=== PATIENT | male | born 1970 | race Caucasian/White ===

== ENCOUNTER 2025-03-14 09:53 | Outpatient (OUT) | payer OTHER, SELFPAY ==
--- OUTSIDE RECORDS SUMMARY | 2009-03-17 08:45 | XMS_ITS | Continuity of Care Document ---
Author Organization [facility] Address [address] [place] [address] Phone Care Team Providers Care Steam Frame Operator Name Role Phone Alberto Villarreal Unavailable Unavailable Procedures Procedure Date OFFICE/OUTPATIENT VISIT, [facility] OFFICE/OUTPATIENT VISIT, [facility] HIV-1 Advance Directives Directive Yes / No Effective Date File Name No Information Encounters Encounter Description Practice Location Reason(s) For Visit Diagnoses Date Provider Providers Copied on Encounter OFFICE/OUTPATI ENT VISIT, [facility], [address], [place], [id number], [place] tel:[phone] [facility] No Information Cherelle Dominguez. [address], [place], [id number], [place]. tel:[phone] OFFICE/OUTPATI ENT VISIT, [facility], [address], [place], [id number], [place] tel:[phone] [facility] No Information Cherelle Dominguez. [address], [place], [id number], [place]. tel:[phone] Family History Family Member Type Diagnosis Age At Onset No Information Payers Payer name Insurance type Covered alliance party ID Authorjazzmine tran(s) Lisa SWEET [id number] Social History Type Description Quantity Date Captured Comments Sex Male Smoking Status No Information Chief Complaint And Reason For Visit No Information Reason For Referral Reason For Referral No Information History Of Present Illness Encounter Date Complaint History Of Prese nt Illness No Information Functional Status Date Functional Assessmen t No Information Instructions Date Instruction Additional Infor mation No Information Assessments Type Assessment Date No Information Patient Care Teams Name Effective Dates (start - stop) Status Members No Information
--- OUTSIDE RECORDS SUMMARY | 2025-03-07 09:30 | XMS_ITS | Encounter Summary ---
Author Organization [facility] Address [address] [place], [place] [address] Care Team Providers Care Retail Mortgage Banker Name Role Phone Fadi Castaneda Arash DO Primary Care Provider [phone] Elroy Padilla MD Unavailable [phone] Leonel Fadi Antoine DO Unavailable [phone] Source Comments In the event this information is protected by the Federal Confidentiality of Alcohol and Drug AbusePatient Records regulations: The Federal rules restrict any use of the information to criminally investigate or prosecute any alcohol or drug abuse patient.[facility] Encounter Details Date Type Department Care Team (Late st Contact Info) Description 03/07/2025 9:30 AM EDT Nurse Visit Hematology/Oncology [address] [place] [address] Carlita Landon Nurse Kishan [address] [place] [address] Encounter for monitoring Coumadin therapy (Primary Dx) Social History Tobacco Use Types Packs/Day Years Used Date Smoking Tobacco: Former Cigarettes 1 - 2008 Smokeless Tobacco: Never Alcohol Use Standard Drinks/Week Comments Yes 0 (1 standard drink = 0.6 oz pur e alcohol) social AUDIT-C Answer Date Recorded Q1: How often do you have a drink containing alc ohol? Monthly or less 05/23/2020 Q2: How many drinks containi ng alcohol do you have on a typical day when you are drinking? 1 or 2 05/23/2020 Frequency of Binge Drinking Not on file 09/2019 PHQ-2 Answer Date Recorded PHQ-2 score 0 08/27/2024 Area Deprivation Index Answer Date Michael rded National Score (1-100), lower number is lower ri sk 79 01/05/2023 State Score (1-10), lower number is lower risk 7 01/05/2023 Data from: https://www.neighborhoodatlas.medicine.[facility]/. Last address used for calculation [address] 01/05/2023 Sex and Gender Information Value Date Recorded Sex Assigned at Not on file Legal Sex Male 9:30 AM EDT Gender Identity Not on file Sexual Orientation Not on file documented as of this encounter Progress Notes * Aida Fulton MA - 03/07/2025 9:30 AM EDT Solitario Raza presents in office today for: Lab Draw only . Ordering Provider: Cecily Ramirez CNP Test (s) ordered: Pro Time Method for obtaining blood: Finger Stick Needle removed intact. Dressing secured. Patient denies discomfort, dizziness, light-headedness or weakness and left the department without assist. Aida Fulton MA documented in this encounter Plan of Treatment Not on file documented as of this encounter Goals Goal Patient Goal Type Associated Problems Recent Progress Patient-Stated? Author Blood Pressure < 130/80 Blood Pressure 129/87(2024 11:25 AM EST) No Roselia Morales documented as of this encounter Visit Diagnoses Diagnosis Encounter for monitoring Coumadin therapy- Primary Encounter for therapeutic drug monitoring documented in this encounter Care Teams Retail Mortgage Banker Relationship Specialty Start Date End Date Fadi Castaneda DO PCP - General Internal Medicine 03/24/15 Elroy Padilla MD Primary Staff Physician Cardiology 11/07/18 Fadi Castaneda DO [address] [place] [address] Internal Medicine 10/03/20 documented as of this encounter
--- NOTE | 2025-03-14 | XR_ITS ---
[facility] [place] [id number] Patient Name: MATEO GALLAGHER MRN: [id number] date: 1970 Sex: M Assigned Patient Location: [facility] Current Patient Location: [facility] Accession/Order Number: [id number] Exam Date: 03/14/2025 10:27 Report Date: 03/14/2025 10:29 At the request of: DEIDRA CLEARY Procedure: XR shoulder MARIELENA min 2V Bilateral shoulder series 3 views each Reason for exam: Chronic right shoulder pain for 10 years. Left shoulder pain for 4 months. COMPARISON: None. FINDINGS: Right shoulder demonstrates moderate degenerative changes of the glenohumeral joint without acute bony process. AC joint appears grossly unremarkable. Left shoulder demonstrates mild degenerative changes of the glenohumeral joint without acute bony process. AC joint appears grossly unremarkable. 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 Impression dictated by: Deshaun Perdomo Jr., D.O. 03/14/2025 10:29 AM Dictation Location: [place] [address] Electronically authenticated by: [id number] Y Date: 03/14/2025 10:29
--- OUTSIDE RECORDS SUMMARY | 2025-03-14 09:55 | XMS_ITS | Encounter Summary ---
Author Organization [facility] Address [address] [place] [address] Care Team Providers Care Gas Meter Installer Name Role Phone Leonel Fadi Antoine DO Primary Care Provider [phone] Elroy Padilla MD Unavailable [phone] Fadi Castaneda DO Unavailable [phone] Brody Huffman MD Unavailable Unavailable Source Comments In the event this information is protected by the Federal Confidentiality of Alcohol and Drug AbusePatient Records regulations: The Federal rules restrict any use of the information to criminally investigate or prosecute any alcohol or drug abuse patient.[facility] Encounter Details Date Type Department Care Team (Late st Contact Info) Description 02/24/2021 Get Medical Advice Cardiology [address], [place] [id number] Brody Huffman MD RE: Upcoming Appointment Question Social History Tobacco Use Types Packs/Day Years Used Date Smoking Tobacco: Former Cigarettes 1 17 2008 Smokeless Tobacco: Never Alcohol Use Standard [...] of Binge Drinking Not on file 09/2019 Area Deprivation Index Answer Date Michael rded National Score (1-100), lower number is lower ri sk Not on file 07/27/2020 State Score (1-10), lower number is lower risk N ot on file 07/27/2020 Data from: https://www.neighborhoodatlas.medicine.[facility]/. Last address used for calculation Not on file 07/27/2020 Sex and Gender Information Value Date Recorded Sex Assigned at Not on file Legal Sex Male 9:30 AM EDT Gender Identity Not on file Sexual Orientation Not on file COVID-19 Exposure Response Date Recorded In the last month, have you been in contact with someone who was confirmed or suspected to have Coronavirus / COVID-19? No / Unsure 02/24/2021 2:02 PM EDT documented as of this encounter Plan of Treatment Not on file documented as of this encounter Visit Diagnoses Not on filedocumented in this encounter Care Teams Gas Meter Installer Relationship Specialty Start Date End Date Fadi Castaneda DO PCP - General Internal Medicine 03/24/15 Elroy Padilla MD Primary Staff Physician Cardiology 11/07/18 Fadi Castaneda DO [address] [place] [address] Internal Medicine 10/03/20 Brody Huffman MD [address] [place] [address] Primary Staff Physician Cardiology 02/26/2106/10 documented as of this encounter
--- OUTSIDE RECORDS SUMMARY | 2025-03-14 09:55 | XMS_ITS | Encounter Summary ---
Author Organization [facility] Address [address] [place] [address] Care Team Providers Care Site Planner Name Role Phone Fadi Castaneda DO Primary Care Provider [phone] Elroy Padilla MD Unavailable [phone] Fadi Castaneda DO Unavailable [phone] Brody Huffman MD Unavailable Unavailable Source Comments In the event this information is protected by the Federal Confidentiality of Alcohol and Drug AbusePatient Records regulations: The Federal rules restrict any use of the information to criminally investigate or prosecute any alcohol or drug abuse patient.[facility] Encounter Details Date Type Department Care Team (Late st Contact Info) Description 03/24/2024 Patient Msg Preventive Cardiology [address] [place] [address] Carlton Lanza MD [address] [place] [address] Appointment Request Social History Tobacco Use Types Packs/Day Years Used Date Smoking Tobacco: Former Cigarettes 1 17 1 - 2008 Smokeless Tobacco: Never Alcohol [...] PHQ-2 Answer Date Recorded PHQ-2 score 0 03/01/2024 Area Deprivation Index Answer Date Michael rded National Score (1-100), lower number is lower ri sk 79 01/05/2023 State Score (1-10), lower number is lower risk 7 01/05/2023 Data from: https://www.neighborhoodatlas.medicine.[facility].edu/. Last address used for calculation [address] 01/05/2023 Sex and Gender Information Value Date Recorded Sex Assigned at Not on file Legal Sex Male 9:30 AM EDT Gender Identity Not on file Sexual Orientation Not on file documented as of this encounter Plan of Treatment Not on file documented as of this encounter Goals Goal Patient Goal Type Associated Problems Recent Progress Patient-Stated? Author Blood Pressure < 130/80 Blood Pressure 129/87(2024 11:25 AM EST) No Roselia Morales documented as of this encounter Visit Diagnoses Not on filedocumented in this encounter Care Teams Site Planner Relationship Specialty Start Date End Date Fadi Castaneda DO PCP - General Internal Medicine 03/24/15 Elroy Padilla MD Primary Staff Physician Cardiology 11/07/18 Fadi Castaneda DO [address] [facility] [place] [address] Internal Medicine 10/03/20 Brody Huffman MD [address] [place] [address] Primary Staff Physician Cardiology 02/26/2106/10 documented as of this encounter
--- OUTSIDE RECORDS SUMMARY | 2025-03-14 09:55 | XMS_ITS | Encounter Summary ---
Author Organization [facility] Address [address] [place] [address] Care Team Providers Care Public Service Representative Name Role Phone Fadi Castaneda DO Primary Care Provider [phone] Elroy Padilla MD Unavailable [phone] Fadi Castaneda DO Unavailable [phone] Brody Huffman MD Unavailable Unavailable Source Comments In the event this information is protected by the Federal Confidentiality of Alcohol and Drug AbusePatient Records regulations: The Federal rules restrict any use of the information to criminally investigate or prosecute any alcohol or drug abuse patient.[facility] Encounter Details Date Type Department Care Team (Late st Contact Info) Description 04/11/2024 Get Medical Advice Cardiology [address] [place] [address] Olga Andrade, LOGGING EQUIPMENT MECHANIC.[facility] [address] [place] [address] Brilinta Social History Tobacco Use Types Packs/Day Years [...] is lower risk 7 01/05/2023 Data from: https://www.neighborhoodatlas.medicine.[facility].edu/. Last address used for calculation [address] [...] on filedocumented in this encounter Care Teams Public Service Representative Relationship Specialty Start Date End Date Fadi Castaneda DO PCP - General Internal Medicine 03/24/15 Elroy Padilla MD Primary Staff Physician Cardiology 11/07/18 Fadi Castaneda DO [address] [place] [address] Internal Medicine 10/03/20 Brody Huffman MD [address] [place] [address] Primary Staff Physician Cardiology 02/26/2106/10 documented as of this encounter
--- OUTSIDE RECORDS SUMMARY | 2025-03-14 09:55 | XMS_ITS | Encounter Summary ---
Author Organization [facility] Address [address] [place] [address] Care Team Providers Care Speech Communication Instructor Name Role Phone Leonel Fadi Antoine DO Primary Care Provider [phone] Elroy Padilla MD Unavailable Leonel Fadi Antoine DO Unavailable [phone] Source Comments In the event this information is protected by the Federal Confidentiality of Alcohol and Drug AbusePatient Records regulations: The Federal rules restrict any use of the information to criminally investigate or prosecute any alcohol or drug abuse patient.[facility] Reason for Visit * Reason Comments Refill Request [facility] Managed Refill Encounter Details Date Type Department Care Team (Late st Contact Info) Description 03/11/2025 Refill Preventive Cardiology [address] [place] [address] Yesenia Kim APRN.[facility] [address] [place] [address] Refill Request ([facility] Managed Refill ) Social History Tobacco Use Types Packs/Day Years [...] is lower risk 7 01/05/2023 Data from: https://www.neighborhoodatlas.medicine.[facility]/. Last address used for calculation [address] 01/05/2023 Sex and Gender Information Value Date Recorded Sex Assigned at Not on file Legal Sex Male 9:30 AM EDT Gender Identity Not on file Sexual Orientation Not on file documented as of this encounter Miscellaneous Notes * Telephone Encounter - Martin Meza [facility] - 03/12/2025 11:47 AM EDT Pharmacist Managed Refill Encounter Name: Solitario Raza Refill authorization request(s) received and reviewed under effective consult agreement. The patient consented to the pharmacy service and agreed to allow medications to be collaboratively managed bythe pharmacist. The patient may decline or cancel the agreement at any time. Upon review, it was confirmed that an active patient-provider relationship exists, and the prescriber is a participating physician under the consult agreement. Last office visit in this department: 05/30/2023 Carlton Lanza MD Last distance health visit in this department: 08/28/2024 Yesenia Kim APRN.[employer] Next appointment in this department: Visit date not found Requested Prescriptions Signed Prescriptions Disp Refills metoprolol succinate ER (TOPROL XL) 25 mg 24 hr tablet 45 tablet 1 Sig: Take 0.5 tablets by mouth once daily. Authorizing Provider: YESENIA KIM Ordering User: MARTIN MEZA spironolactone (ALDACTONE) 25 mg tablet 45 tablet 1 Sig: Take 0.5 tablets by mouth once daily. Authorizing Provider: YESENIA KIM Ordering User: MARTIN MEZA The medication(s) fall under category 1: No barriers to continued therapy exist. # of refills approved in this encounter: 2 Martin Meza RPh documented in this encounter Plan of Treatment Not on file documented as of this encounter Goals Goal Patient Goal Type Associated Problems Recent Progress Patient-Stated? Author Blood Pressure < 130/80 Blood Pressure 129/87(2024 11:25 AM EST) No Roselia Morales documented as of this encounter Visit Diagnoses Not on filedocumented in this encounter Care Teams Speech Communication Instructor Relationship Specialty Start Date End Date Fadi Castaneda DO PCP - General Internal Medicine 03/24/15 Elroy Padilla MD Primary Staff Physician Cardiology 11/07/18 Fadi Castaneda DO [address] [place] [address] Internal Medicine 10/03/20 documented as of this encounter
--- OUTSIDE RECORDS SUMMARY | 2025-03-14 09:55 | XMS_ITS | Encounter Summary ---
Author Organization [facility] Address [address] [place] [address] Care Team Providers Care Manager Country Name Role Phone Fadi Castaneda DO Primary Care Provider [phone] Elroy Padilla MD Unavailable [phone] Fadi Castaneda DO Unavailable [phone] Brody Huffman MD Unavailable Unavailable Source Comments In the event this information is protected by the Federal Confidentiality of Alcohol and Drug AbusePatient Records regulations: The Federal rules restrict any use of the information to criminally investigate or prosecute any alcohol or drug abuse patient.[facility] Encounter Details Date Type Department Care Team (Late st Contact Info) Description 10/13/2023 Get Medical Advice Preventive Cardiology [address] [place] [address] Carlton Lanza MD [address] [place] [address] Next appointment Social History Tobacco Use Types Packs/Day Years [...] PHQ-2 Answer Date Recorded PHQ-2 score 0 08/31/2023 Area Deprivation Index Answer Date Michael rded National Score (1-100), lower number is lower ri sk 79 01/05/2023 State Score (1-10), lower number is lower risk 7 01/05/2023 Data from: https://www.neighborhoodatlas.medicine.[facility].edu/. Last address used for calculation [address] [...] on filedocumented in this encounter Care Teams Manager Country Relationship Specialty Start Date End Date Fadi Castaneda DO PCP - General Internal Medicine 03/24/15 Elroy Padilla MD Primary Staff Physician Cardiology 11/07/18 Fadi Castaneda DO [address] [place] [address] Internal Medicine 10/03/20 Brody Huffman MD [address] [place] [address] Primary Staff Physician Cardiology 02/26/2106/10 documented as of this encounter
--- OUTSIDE RECORDS SUMMARY | 2025-03-14 09:55 | XMS_ITS | Encounter Summary ---
Author Organization [facility] Address [address] [place] [address] Care Team Providers Care Completions Manager Name Role Phone Fadi Castaneda DO Primary Care Provider [phone] Elroy Padilla MD Unavailable [phone] Elroy Padilla MD Unavailable [phone] Fadi Castaneda DO Unavailable [phone] Brody Huffman MD Unavailable Unavailable Source Comments In the event this information is protected by the Federal Confidentiality of Alcohol and Drug AbusePatient Records regulations: The Federal rules restrict any use of the information to criminally investigate or prosecute any alcohol or drug abuse patient.[facility] Encounter Details Date Type Department Care Team (Late st Contact Info) Description 06/23/2018 Get Medical Advice Cardiology [address] [place], [place] [phone] Elroy Padilla MD [address] [facility] [address] [place] [address] RE: Non-Urgent Medical Question Social History Tobacco Use Types Packs/Day Years Used Date Smoking Tobacco: Former Cigarettes 1 17 1 992 - 2009 Smokeless Tobacco: Never Alcohol Use Standard Drinks/Week Comments Yes 0 (1 standard drink = 0.6 oz pur e alcohol) social Sex and Gender Information Value Date Recorded Sex Assigned at Not on file Legal Sex Male 9:30 AM EDT Gender Identity Not on file Sexual Orientation Not on file documented as of this encounter Plan of Treatment Not on file documented as of this encounter Visit Diagnoses Not on filedocumented in this encounter Care Teams Completions Manager Relationship Specialty Start Date End Date Fadi Castaneda DO PCP - General Internal Medicine 03/24/15 Elroy Padilla MD Primary Staff Physician Cardiology 11/07/18 Elroy Padilla MD Primary Staff Physician Cardiology 11/07/18 Fadi Castaneda DO [address] [place] [address] Internal Medicine 10/03/20 Brody Huffman MD [address] [place] [address] Primary Staff Physician Cardiology 02/26/2106/10 documented as of this encounter
--- OUTSIDE RECORDS SUMMARY | 2025-03-14 09:55 | XMS_ITS | Encounter Summary ---
Author Organization [facility] Address [address] [place] [address] Phone Care Team Providers Care Traveling Auditor Name Role Phone Fadi Castaneda DO Primary Care Provider [phone] Encounter Details Date Type Department Care Team (Late st Contact Info) Description 12/29/2022 Orders Only [facility] [address] [place] [address] Conversion, Onbase Social History Tobacco Use Types Packs/Day Years Used Date Smoking Tobacco: Never Assessed Sex and Gender Information Value Date Recorded Sex Assigned at Not on file Legal Sex Male 7:44 AM EST Gender Identity Not on file Sexual Orientation Not on file documented as of this encounter Plan of Treatment Scheduled Orders Name Type Priority Associated Diagnoses Orde r Schedule OUTSIDE LAB SCAN Lab Ordered: 12/29/2022 documented as of this encounter Visit Diagnoses Not on filedocumented in this encounter Care Teams Traveling Auditor Relationship Specialty Start Date End Date Fadi Castaneda DO PCP - General 11/30/22 documented as of this encounter
--- OUTSIDE RECORDS SUMMARY | 2025-03-14 09:55 | XMS_ITS | Encounter Summary ---
Author Organization [facility] Address [address] [place] [address] Care Team Providers Care Sales Marketing Manager Name Role Phone Leonel Fadi Antoine DO Primary Care Provider [phone] Elroy Padilla MD Unavailable [phone] Fadi Castaneda DO Unavailable [phone] Brody Huffman MD Unavailable Unavailable Source Comments In the event this information is protected by the Federal Confidentiality of Alcohol and Drug AbusePatient Records regulations: The Federal rules restrict any use of the information to criminally investigate or prosecute any alcohol or drug abuse patient.[facility] Encounter Details Date Type Department Care Team (Late st Contact Info) Description 01/18/2024 Patient Msg Cardiology [address] [place], [place] [id number] Brody Huffman MD Appointment Request Social History Tobacco Use Types Packs/Day Years Used Date Smoking Tobacco: Former Cigarettes 2008 Smokeless Tobacco: Never Alcohol Use Standard [...] is lower risk 7 01/05/2023 Data from: https://www.neighborhoodatlas.medicine.[facility].edu/. Last address used for calculation [address] 01/05/2023 Sex and Gender Information Value [...] 130/80 Blood Pressure 129/87(2024 11:25 AM EST) Roselia Alberts documented as of this encounter Visit Diagnoses Not on filedocumented in this encounter Care Teams Sales Marketing Manager Relationship Specialty Start Date End Date Fadi Castaneda DO PCP - General Internal Medicine 03/24/15 Elroy Padilla MD Primary Staff Physician Cardiology 11/07/18 Fadi Castaneda DO [address] [place] [address] Internal Medicine 10/03/20 Brody Huffman MD [address] [place] [address] Primary Staff Physician Cardiology 02/26/2106/10 documented as of this encounter
--- OUTSIDE RECORDS SUMMARY | 2025-03-14 09:55 | XMS_ITS | Encounter Summary ---
Author Organization [facility] Address [address] [place] [address] Care Team Providers Care Dimpling Machine Operator Name Role Phone Leonel Fadi Antoine DO Primary Care Provider [phone] Elroy Padilla MD Unavailable [phone] Fadi Castaneda DO Unavailable Brody Huffman MD Unavailable Unavailable Source Comments In the event this information is protected by the Federal Confidentiality of Alcohol and Drug AbusePatient Records regulations: The Federal rules restrict any use of the information to criminally investigate or prosecute any alcohol or drug abuse patient.[facility] Encounter Details Date Type Department Care Team (Late st Contact Info) Description 03/24/2024 Patient Msg Cardiology [address], [place] [address] Brody Huffman MD Appointment Request Social History [...] is lower risk 7 01/05/2023 Data from: https://www.neighborhoodatlas.medicine.[facility].edu/. Last address used for calculation [...] on filedocumented in this encounter Care Teams Dimpling Machine Operator Relationship Specialty Start Date End Date Fadi Castaneda DO PCP - General Internal Medicine 03/24/15 Elroy Padilla MD Primary Staff Physician Cardiology 11/07/18 Fadi Castaneda DO [address] [place] [address] Internal Medicine 10/03/20 Brody Huffman MD [address] [place] [address] Primary Staff Physician Cardiology 02/26/2106/10 documented as of this encounter
--- OUTSIDE RECORDS SUMMARY | 2025-03-14 09:55 | XMS_ITS | Encounter Summary ---
Author Organization [facility] Address [address] [place] [address] Care Team Providers Care Machine Designer Name Role Phone LeonelFadi Arash DO Primary Care Provider [phone] Elroy Padilla MD Unavailable [phone] Leonel Fadi Antoine DO Unavailable [phone] Source Comments In the event this information is protected by the Federal Confidentiality of Alcohol and Drug AbusePatient Records regulations: The Federal rules restrict any use of the information to criminally investigate or prosecute any alcohol or drug abuse patient.[facility] Encounter Details Date Type Department Care Team (Late st Contact Info) Description 08/20/2024 Get Medical Advice Cardiology [address] [place], [place] [id number] Brody Huffman MD My rosuvastatin Social History Tobacco Use Types Packs/Day Years [...] is lower risk 7 01/05/2023 Data from: https://www.neighborhoodatlas.medicine.[facility].edu/. Last address used for calculation [...] on filedocumented in this encounter Care Teams Machine Designer Relationship Specialty Start Date End Date Fadi Castaneda DO PCP - General Internal Medicine 03/24/15 Elroy Padilla MD Primary Staff Physician Cardiology 11/07/18 Fadi Castaneda DO [address] [place] [address] Internal Medicine 10/03/20 documented as of this encounter
--- OUTSIDE RECORDS SUMMARY | 2025-03-14 09:55 | XMS_ITS | Clinical Summary ---
Author Organization [facility] Address [address] [place], [place] [id number] Care Team Providers Care Straightening Machine Feeder Name Role Phone Fadi Castaneda DO Primary Care Provider [phone] Elroy Padilla MD Unavailable Fadi Castaneda DO Unavailable [phone] Allergies Active Allergy Reactions Criticality Noted Date Comments Evolocumab Rash 01/05/2023 Medications Cetirizine 10 mg cap Take 1 capsule by mouth once daily. Active MULTIVIT-MIN/ FA/LYCOPEN/JOSE TEIN (CENTRUM SILVER ULTRA MEN'S ORAL) Take by mouth. Act ame colchicine 0.6 mg tablet Take 1 tablet by mouth once daily. 90 tablet 3 5 3:48 PM EDT 03/02/20 24 2024 Active warfarin (COUMADIN) 5 mg tablet Take 2 tablets (10mg) once daily until further instructions. 180 tablet 3 5 3:07 PM EDT 04/09/20 24 Active rosuvastatin (CRESTOR) 40 mg tablet Take 1 tablet by mouth once daily. 90 tablet 3 5 1:14 PM EDT 08/20/20 24 Active ticagrelor (BRILINTA) 90 mg tablet TAKE 1 TABLET TWICE DAILY. 180 tablet 3 5 3:07 PM EDT 08/23/19 25 Active alirocumab (PRALUENT PEN) 75 mg/mL pen Inject 1 mL subcutaneously every other week. 6 mL 3 5 10:51 AM EDT 08/28/19 25 2025 Active ezetimibe (ZETIA) 10 mg tablet Take 1 tablet by mouth once daily. 90 tablet 3 5 3:48 PM EDT 08/28/19 25 Active allopurinol (ZYLOPRIM) 100 mg tablet Take 2 tablets by mouth once daily 180 tablet 3 5 3:48 PM EDT 12/08/19 25 Active metoprolol succinate ER (TOPROL XL) 25 mg 24 hr tablet Take 0.5 tablets by mouth once daily. 45 tablet 1 03/12/20 25 Active spironolacton e (ALDACTONE) 25 mg tablet Take 0.5 tablets by mouth once daily. 45 tablet 1 03/12/20 25 Active metoprolol succinate ER (TOPROL XL) 25 mg 24 hr tablet Take 0.5 tablets by mouth once daily. 45 tablet 1 5 3:52 PM EDT 08/28/19 25 2024 Discontinued spironolacton e (ALDACTONE) 25 mg tablet Take 0.5 tablets by mouth once daily. 45 tablet 1 5 3:52 PM EDT 08/28/19 25 2024 Discontinued Active Problems Problem Noted Date Diagnosed Date Coronary artery disease invo lving [place] coronary artery of [place] heart with angina pectoris 09/30/2017 Personal history of nicotine dependence 09/15/19 18 Personal history of pulmonary embolism 8 Anosmia 08/10/2017 Blood clot in vein 09/22/2016 Lupus anticoagulant disorder 09/30/2015 Pulmonary embolus with infarction 09/30/2015 Hyperlipidemia 09/30/2015 Encounter for monitoring Coumadin therapy 2014 Encounters Date Type Department Care Team Description 03/11/2025 Refill Preventive Cardiology [address] [place] [id number] Yesenia Kim, [email or web address] CREDIT LEASING CONSULTANT Refill Request ([facility] Managed Refill ) 03/07/2025 9:30 AM EDT Nurse Visit Hematology/Oncology [address] [place] [address] [place] [address] Carlita Landon Nurse Kishan Encounter for monitoring Coumadin therapy (Primary Dx) 03/07/2025 Travel 02/07/2025 12:45 PM EDT Nurse Visit Hematology/Oncology [address] [place] [address] [place] [address] Carlita Landon Nurse Kishan Encounter for monitoring Coumadin therapy 01/28/2025 Orders Only Hematology/Oncology [address] [facility] [place] [address] Carlita Landon Nurse Kishan Encounter for monitoring Coumadin therapy 01/14/2025 Orders Only Hematology/Oncology [address] [place] [address] [place] [address] Carlita Landon Nurse Kishan Encounter for monitoring Coumadin therapy 01/09/2025 1:00 PM EDT Nurse Visit Hematology/Oncology [address] [place] [address] [place] [address] Carlita Landon Nurse Kishan Encounter for monitoring Coumadin therapy (Primary Dx) 01/09/2025 Travel 12/31/2024 Orders Only Hematology/Oncology [address] [place] [address] [place] [address] Carlita Landon Nurse Kishan Encounter for monitoring Coumadin therapy from Last 3 Months Immunizations Immunization Administration Dates Next Due COVID-19 original vaccine, a ge 12+ yr, monovalent ([employer] - PURPLE TOP) 09/18/2021,03/14/2021,02/21/2021 influenza (IIV3) vaccine, ag e 6 mo - 64 yr, trivalent, PF (AFLURIA, FLUARIX, FLULAVAL, FLUVIRIN, FLUZONE) 06/27/2024 influenza (IIV3) vaccine, tr ivalent (AFLURIA, FLULAVAL, FLUVIRIN, FLUZONE) 05/22/2017,05/27/2016 influenza (IIV4) vaccine, ag e 6 mo - 64 yr, quadrivalent, PF (AFLURIA, FLUARIX, FLULAVAL, FLUZONE) 07/22/2023,05/25/2022,05/27/2021,2019,06/21/2019,06/02/2018,07/01/2017 tetanus diphtheria (Td) vacc ine, age 7+ yr, 5 Lf tetanus, PF (TENIVAC) 05/27/2016,06/07/2013 Family History Medical History Relation Comments Ischemic Heart Disease Father from [facility] Hyperlipidemia Mother Relation Status Comments Father Mother Social History Tobacco Use Types Packs/Day Years [...] is lower risk 7 01/05/2023 Data from: https://www.neighborhoodatlas.medicine.[facility]/. Last address used for calculation Ellen Ortez 01/05/2023 Sex and Gender Information Value Date Recorded Sex Assigned at Not on file Legal Sex Male 9:30 AM EDT Gender Identity Not on file Sexual Orientation Not on file Last Filed Vital Signs Vital Sign Reading Time Taken Comments Blood Pressure 129/87 08/28/2024 11:25 AM EST Pulse 84 08/28/2024 11:25 AM EST Temperature 36.6 C (97.8 F) 08/28/2024 11:25 AM EST Respiratory Rate 18 08/28/2024 11:25 AM EST Oxygen Saturation 97% 08/28/2024 11:25 AM EST Inhaled Oxygen Concentration - - Weight 88 kg (194 lb) 08/28/2024 11:25 AM EST Height 162.6 cm (5' 4.02 ) 08/01/2023 10:[address] Body Mass Index 33.28 08/01/2023 10:40 AM EST Plan of Treatment Health Maintenance Due Date Last Done Comments Annual PCP Team Chronic Dise ase Visit 1989 Anxiety Screening 1989 Depression Screening 1989 HIV Screening 1989 Hepatitis C Screening 1989 Hepatitis B Vaccine (1 of 3 - 19+ 3-dose series) 1990 CT Colonography 2016 Cologuard (FIT-DNA) 2016 Colonoscopy 2016 Colorectal Cancer Screening 2016 Fecal Occult Blood 2016 Sigmoidoscopy 2016 DTaP,Tdap,Td Vaccine (1 - Tdap) 05/28/2016 6, 06/07/2013 Pneumococcal Vaccine: 50+ (1 of 1 - PCV) 2021 Shingrix Vaccine (1 of 2) 2021 Covid-19 Vaccine (4 - 2023-2 5 season) 2024 09/18/2021, 03/14/2021, 02/21/2021 LDL Cholesterol 03/05/2025 03/05/2024, 01/0 04/2024, 07/05/2023, Additional history exists Influenza Vaccine (#1) 2025 , 07/22/2023, 05/25/2022, Additional history exists Diabetes Screening 08/20/2027 08/20/2024, 0 08/30/2023, 08/01/2023, Additional history exists Lipid Screening 03/05/2029 03/05/2024, 01/0 04/2024, 07/05/2023, Additional history exists Goals Goal Patient Goal Type Associated Problems Recent Progress Patient-Stated? Author Blood Pressure < 130/80 Blood Pressure 129/87(2024 11:25 AM EST) Roselia Alberts Procedures Procedure Name Priority Date/Time Associated Diagnosis Comments INR (POC) Routine 03/07/2025 9:28 AM EDT INR (POC) Routine 02/07/2025 12:44 PM EDT INR (POC) Routine 01/09/2025 1:03 PM EDT COMPREHENSIVE METABOLIC PANEL Routine 08/20/2024 2:29 PM EST Personal history of pulmonary embolism Pulmonary embolus with infarction (HCC) Encounter for monitoring Coumadin therapy Lupus anticoagulant disorder (HCC) Coronary artery disease involving [place] coronary artery of [place] heart without angina pectoris LIPID PANEL, FASTING Routine 03/05/2024 1:04 PM EDT Coronary artery disease involving [place] coronary artery of [place] heart without angina pectoris from Last 3 Months or Most Recently Relevant to Health Maintenance Results * (ABNORMAL) INR (POC) (03/07/2025 9:28 AM EDT) Only the most recent of3 resultswithin the time period is included. [facility] INR (POCT) 2.3(H) 0.8 - 1.2 [facility] Internal Quality Check Acceptable [facility] 03/07/2025 9:28 AM EDT Narrative [facility] POINT OF CARE - 03/07/2025 9:28 AM EDT Location:[facility], [address] [place] [address], [address] [place] [facility] Provider POC TESTING Final Result [facility] POINT OF CARE [address] * (ABNORMAL) COMP METABOLIC PANEL (08/20/2024 2:29 PM EST) [facility] Protein, Total 6.9 6.3 - 8.0 g/dL 08/20/2024 2:53 PM EST [facility] Albumin 4.6 3.9 - 4.9 g/dL 08/20/2024 2:53 PM EST [facility] Calcium, Total 9.2 8.5 - 10.2 mg/dL 08/20/2024 2:53 PM EST [facility] Bilirubin, Total 0.3 0.2 - 1.3 mg/dL 08/20/2024 2:53 PM EST [facility] Alkaline Phosphatase 97 38 - 113 U/L 08/20/2024 2:53 PM EST [facility] AST 23 14 - 40 U/L 08/20/2024 2:53 PM EST [facility] ALT 26 10 - 54 U/L 08/20/2024 2:53 PM EST [facility] Glucose 128(H) 74 - 99 mg/dL 08/20/2024 2:53 PM [facility] Comment: The [place] Diabetes Association (ADA) provides guidance for cutoff values for fasting glucose and random glucose. The ADA defines fasting as no caloric intake for at least 8 hours. Fasting plasma glucose results between 100 to 125 mg/dL indicate increased risk for diabetes (prediabetes). Fasting plasma glucose results greater than or equal to 126 mg/dL meet the criteria for diagnosis of diabetes. In the absence of unequivocal hyperglycemia, results should be confirmed by repeat testing. In a patient with classic symptoms of hyperglycemia or hyperglycemic crisis, random plasma glucose results greater than or equal to 200 mg/dL meet the criteria for diagnosis of diabetes. Reference: Standards of Medical Care in Diabetes 2016, [place] Diabetes Association. Diabetes Care. 2016.39(Suppl 1). BUN 14 9 - 24 mg/dL 08/20/2024 2:53 PM [facility] Creatinine 0.98 0.73 - 1.22 mg/dL 08/20/2024 2:53 PM [facility] Sodium 139 136 - 144 mmol/L 08/20/2024 2:53 PM [facility] Potassium 3.8 3.7 - 5.1 mmol/L 08/20/2024 2:53 PM [facility] Chloride 104 98 - 107 mmol/L 08/20/2024 2:53 PM [facility] CO2 24 22 - 30 mmol/L 08/20/2024 2:53 PM [facility] Anion Gap 11 8 - 15 mmol/L 08/20/2024 2:53 PM [facility] Estimated Glomerular Filtration Rate 92 >=60 mL/min/1. 73m 08/20/2024 2:53 PM [facility] Comment:Estimated Glomerular Filtration Rate (eGFR) is calculated using the 2020 CKD-EPI creatinine equation. This equation utilizes serum creatinine, sex, and age as parameters. The creatinine assay has traceable calibration to isotope dilution- mass spectrometry. Refer to KDIGO guidelines for clinical interpretation. In patients with unstable renal function, e.g. those with acute kidney injury, the eGFR may not accurately reflect actual GFR. Blood BLOOD SPECIMEN / Unknown Venipuncture / Unknown 08/20/2024 2:29 PM EST 08/20/2024 2:29 PM EST us Cecily Ramirez MAKE UP OPERATOR HELPER.TAX CREDIT LEASING CONSULTANT LABORATORY Final Re sult [facility] [address] [place] [address] * LIPID PANEL BASIC (03/05/2024 1:04 PM EDT) Pathologist [facility] Cholesterol, Total 81 <200 mg/dL 03/06/2024 6:20 PM EDT [facility] Comment: <200 mg/dL, Desirable 200-239 mg/dL, Borderline high >239 mg/dL, High Triglyceride 104 <150 mg/dL 03/06/2024 6:20 PM EDT [facility] Comment: <150 mg/dL, Normal 150-199 mg/dL, Borderline high 200-499 mg/dL, High >499 mg/dL, Very high HDL Cholesterol 46 >39 mg/dL 6:20 PM EDT [facility] Comment: 40-59 mg/dL, Acceptable >59 mg/dL, High: Negative risk factor for coronary heart disease <40 mg/dL, Low: Positive risk factor for coronary heart disease Non HDL Cholesterol 35 <130 mg/dL 03/06/2024 6:20 PM EDT [facility] Comment: <130 mg/dL, Optimal 130-159 mg/dL, Near optimal/above optimal 160-189 mg/dL, Borderline high 190-219 mg/dL, High >219 mg/dL, Very high Secondary prevention optimal non HDL Cholesterol levels are recommended to be <100 mg/dL Fasting Time 12 hrs 03/06/2024 6:20 PM EDT [facility] VLDL Cholesterol 21 <30 mg/dL 03/06/20 6:20 PM EDT [facility] TC:HDL Ratio 1.76 <5.10 03/06/2024 6:20 PM EDT [facility] LDL Cholesterol, Calculated 14 <100 mg/dL 03/06/2024 6:20 PM EDT [facility] Comment: <100 mg/dL, Optimal 100-129 mg/dL, Near optimal/above optimal 130-159 mg/dL, Borderline high 160-189 mg/dL, High >189 mg/dL, Very high Secondary prevention optimal LDL Cholesterol levels are recommended to be < 70 mg/dL LDL:HDL Ratio 0.30 <2.54 03/06/2024 6:20 PM EDT [facility] Comment: Reference: 1. National Cholesterol Education Program ATP III Guideline At-A-Glance Quick Desk Reference: National Heart, Lung, and Blood [place]. National Institutes of Health. 2001: NIH Publication No. 01-3305. 2. An International Atherosclerosis Society position paper: global recommendations for the management of dyslipidemia: executive summary, Atherosclerosis. 2014: 232(2):410-413. Blood BLOOD SPECIMEN / Unknown Venipuncture / Unknown 03/05/2024 1:04 PM EDT 03/05/2024 1:04 PM EDT Yesenia Kim MAKE UP OPERATOR HELPER.[facility] Karuna l Result [facility] [address] [place] [address], [facility] [address] [place] [phone] from Last 3 Months or Most Recently Relevant to Health Maintenance Insurance AETNA AETNA Advance Directives Documents on File Type Date Recorded Patient Abrasive Sawyer Expl anation Advance Directive(s) 04/17/2024 9:13 AM Ad nelson Directives- Health Care Power of Head Start Coordinator Care Teams Straightening Machine Feeder Relationship Specialty Start Date End Date Fadi Castaneda DO PCP - General Internal Medicine 03/24/15 Elroy Padilla MD Primary Staff Physician Cardiology 11/07/18 Fadi Castaneda DO [address] [place] [address] Internal Medicine 10/03/20
--- OUTSIDE RECORDS SUMMARY | 2025-03-14 09:55 | XMS_ITS | Clinical Summary ---
Author Organization [facility] Address [address] [place] [address] Phone Care Team Providers Care Fancy Packer Name Role Phone LeonelFadi Primary Care Provider [phone] Medications cetirizine (ZYRTEC) 10 mg capsule Take 1 capsule (10 mg) by mouth once daily. Active ezetimibe (Zetia) 10 mg tablet Take 1 tablet (10 mg) by mouth once daily. 11/24/2023 Active metoprolol succinate XL (Toprol-XL) 25 mg 24 hr tablet Take 0.5 tablets (12.5 mg) by mouth once daily. 11/25/2022 Active rosuvastatin (Crestor) 40 mg tablet Take 1 tablet (40 mg) by mouth once daily. 07/27/2023 Active warfarin (Coumadin) 5 mg tablet As directed 03/07/2023 Active allopurinoL 200 mg tablet Take 200 mg by mouth once daily. Active aspirin 81 mg EC tablet Take 1 tablet (81 mg) by mouth once daily. Active clopidogrel (Plavix) 75 mg tablet Take by mouth once daily. Active spironolactone (Aldactone) 25 mg tablet Take 1 tablet (25 mg) by mouth once daily. Active nitroglycerin (Nitrostat) 0.[address] 1 tablet (0.4 mg) under the tongue every 5 minutes if needed for chest pain. Active Active Problems Problem Noted Date Diagnosed Date History of PTCA 12/21/2023 Former smoker 12/21/2023 Coronary artery disease invo lving [place] coronary artery of [place] heart with angina pectoris 09/30/2017 Personal history of pulmonary embolism 8 Hyperlipidemia 09/30/2015 Lupus anticoagulant disorder (Multi) 09/30/2015 Pulmonary embolus with infarction (Multi) 2015 Social History Tobacco Use Types Packs/Day Years Used Date Smoking Tobacco: Never Assessed Sex and Gender Information Value Date Recorded Sex Assigned at Not on file Legal Sex Male 7:44 AM EST Gender Identity Not on file Sexual Orientation Not on file Last Filed Vital Signs Vital Sign Reading Time Taken Comments Blood Pressure 110/68 11/30/2022 11:20 AM EDT Pulse 70 11/30/2022 11:20 AM EDT Temperature - - Respiratory Rate - - Oxygen Saturation - - Inhaled Oxygen Concentration - - Weight 88.9 kg (196 lb) 11/30/2022 11:20 AM EDT Height 162.6 cm (5' 4 ) 11/30/2022 11:20 AM EDT Body Mass Index 33.64 11/30/2022 11:20 AM EDT Plan of Treatment Health Maintenance Due Date Last Done Comments CT Colonography 1971 Colonoscopy 1971 Colorectal Cancer Screening 1971 FIT-DNA (Cologuard) 1971 FIT 1971 HIV Screening 1971 Lipid Panel 1971 Sigmoidoscopy 1971 Yearly Adult Physical 1971 MMR Vaccines (1 of 1 - Standard series) 1972 Hepatitis C Screening 1989 Hepatitis B Vaccines (1 of 3 - 19+ 3-dose series) 1990 Pneumococcal Vaccine (1 of 2 - PCV) 1990 DTaP/Tdap/Td Vaccines (1 - Tdap) 1993 Zoster Vaccines (1 of 2) 2021 COVID-19 Vaccine (4 - season) 2024 09/18/2021, 03/14/2021, 02/21/2021 Influenza Vaccine (#1) 2025 2, 05/27/2021, 05/30/2020, Additional history exists HIB Vaccines Aged Out No longer eligi ble based on patient's age to complete this topic HPV Vaccines Aged Out No longer eligi ble based on patient's age to complete this topic Hepatitis A Vaccines Aged Out No long er eligible based on patient's age to complete this topic IPV Vaccines Aged Out No longer eligi ble based on patient's age to complete this topic Meningococcal Vaccine Aged Out No mary rolf eligible based on patient's age to complete this topic Rotavirus Vaccines Aged Out No longer eligible based on patient's age to complete this topic Insurance Care Teams Fancy Packer Relationship Specialty Start Date End Date Fadi Castaneda DO PCP - General 11/30/22
--- OUTSIDE RECORDS SUMMARY | 2025-03-14 09:55 | XMS_ITS | Encounter Summary ---
Author Organization [facility] Address [address] [place] [address] Phone Care Team Providers Care Product Applications Engineer Name Role Phone Fadi Castaneda DO Primary Care Provider [phone] Fadi Castaneda DO Primary Care Provider [phone] Encounter Details Date Type Department Care Team (Late st Contact Info) Description 11/21/2022 Orders Only [facility] [address] [place] [address] Conversion, Onbase Social History Tobacco Use Types [...] r Schedule OUTSIDE LAB SCAN Lab Ordered: 11/21/2022 documented as of this encounter Visit Diagnoses Not on filedocumented in this encounter Care Teams Product Applications Engineer Relationship Specialty Start Date End Date Fadi Castaneda DO PCP - General 11/30/22 Fadi Castaneda DO PCP - General 11/21/22 11/29/22 documented as of this encounter
--- OUTSIDE RECORDS SUMMARY | 2025-03-14 09:55 | XMS_ITS | Encounter Summary ---
Author Organization [facility] Address [address] [place] [address] Care Team Providers Care Materials Handling Equipment Operator Name Role Phone Leonel Fadi Antoine DO Primary Care Provider [phone] Elroy Padilla MD Unavailable [phone] Fadi Castaneda DO Unavailable [phone] Brody Huffman MD Unavailable Unavailable Source Comments In the event this information is protected by the Federal Confidentiality of Alcohol and Drug AbusePatient Records regulations: The Federal rules restrict any use of the information to criminally investigate or prosecute any alcohol or drug abuse patient.[facility] Encounter Details Date Type Department Care Team (Late st Contact Info) Description 03/06/2024 Get Medical Advice Cardiology [address] [place], [place] [id number] Brody Huffman MD Appt this Social History Tobacco Use Types Packs/Day Years Used Date Smoking Tobacco: Former Cigarettes 1 2008 Smokeless Tobacco: Never Alcohol Use Standard [...] is lower risk 7 01/05/2023 Data from: https://www.neighborhoodatlas.medicine.[facility]/. Last address used for calculation Ellen Ortez [...] on filedocumented in this encounter Care Teams Materials Handling Equipment Operator Relationship Specialty Start Date End Date Fadi Castaneda DO PCP - General Internal Medicine 03/24/15 Elroy Padilla MD Primary Staff Physician Cardiology 11/07/18 Fadi Castaneda DO [address] [place] [address] Internal Medicine 10/03/20 Brody Huffman MD [address] [place] [address] Primary Staff Physician Cardiology 02/26/2106/10 documented as of this encounter
--- OUTSIDE RECORDS SUMMARY | 2025-03-14 09:55 | XMS_ITS | Encounter Summary ---
Author Organization [facility] Address [address] [place], [place] [id number] Care Team Providers Care Machine Tool Operator Name Role Phone LeonelFadi Arash DO Primary Care Provider [phone] Elroy Padilla MD Unavailable [phone] Leonel Fadi Antoine DO Unavailable [phone] Source Comments In the event this information is protected by the Federal Confidentiality of Alcohol and Drug AbusePatient Records regulations: The Federal rules restrict any use of the information to criminally investigate or prosecute any alcohol or drug abuse patient.[facility] Encounter Details Date Type Department Care Team (Latest Contact Info) Description 03/07/2025 Travel Social History Tobacco Use Types Packs/Day Years [...] is lower risk 7 01/05/2023 Data from: https://www.neighborhoodatlas.medicine.[facility].edu/. Last address used for calculation [address] [...] filedocumented in this encounter Care Teams Machine Tool Operator Relationship Specialty Start Date End Date Fadi Castaneda DO PCP - General Internal Medicine 03/24/15 Elroy Padilla MD Primary Staff Physician Cardiology 11/07/18 Fadi Castaneda DO [address] [place] [address] Internal Medicine 10/03/20 documented as of this encounter
--- OUTSIDE RECORDS SUMMARY | 2025-03-14 09:55 | XMS_ITS | Encounter Summary ---
Author Organization [facility] Address [address] [place] [address] Care Team Providers Care Sprinkler Tender Name Role Phone Leonel Fadi Antoine DO Primary Care Provider [phone] Elroy Padilla MD Unavailable [phone] Fadi Castaneda DO Unavailable [phone] Brody Huffman MD Unavailable Unavailable Source Comments In the event this information is protected by the Federal Confidentiality of Alcohol and Drug AbusePatient Records regulations: The Federal rules restrict any use of the information to criminally investigate or prosecute any alcohol or drug abuse patient.[facility] Encounter Details Date Type Department Care Team (Late st Contact Info) Description 03/24/2022 Get Medical Advice Cardiology [address] [place], [place] [address] Brody Huffman MD Upcoming appointment for a procedure Social History Tobacco Use Types Packs/Day Years [...] (1-100), lower number is lower ri sk 70 01/08/2022 State Score (1-10), lower number is lower risk N ot on file 01/08/2022 Data from: https://www.neighborhoodatlas.medicine.[facility]/. Last address used for calculation [address] 01/08/2022 Sex and Gender Information Value Date Recorded Sex Assigned at Not on file Legal Sex Male 9:30 AM EDT Gender Identity Not on file Sexual Orientation Not on file COVID-19 Exposure Response Date Recorded In the last 10 days, have yo u been in contact with someone who was confirmed or suspected to have Coronavirus/COVID-19? No / Unsure 03/23/2022 9:45 AM EDT documented as of this encounter Plan of Treatment Not on file documented as of this encounter Visit Diagnoses Not on filedocumented in this encounter Care Teams Sprinkler Tender Relationship Specialty Start Date End Date Fadi Castaneda DO PCP - General Internal Medicine 03/24/15 Elroy Padilla MD Primary Staff Physician Cardiology 11/07/18 Fadi Castaneda DO [address] [place] [address] Internal Medicine 10/03/20 Brody Huffman MD [address] [place] [address] Primary Staff Physician Cardiology 02/26/2106/10 documented as of this encounter
--- OUTSIDE RECORDS SUMMARY | 2025-03-14 09:55 | XMS_ITS | Encounter Summary ---
Author Organization [facility] Address [address] [place] [address] Care Team Providers Care Mammal Control Agent Name Role Phone Fadi Castaneda DO Primary Care Provider [phone] Elroy Padilla MD Unavailable [phone] Fadi Castaneda DO Unavailable [phone] Brody Huffman MD Unavailable Unavailable Source Comments In the event this information is protected by the Federal Confidentiality of Alcohol and Drug AbusePatient Records regulations: The Federal rules restrict any use of the information to criminally investigate or prosecute any alcohol or drug abuse patient.[facility] Encounter Details Date Type Department Care Team (Late st Contact Info) Description 01/08/2023 Get Medical Advice Cardiology [address] [place] [address] Gina Hayes APRN.TIMBER DEADENER [address] [place] [address] Second Echo Social History Tobacco Use Types Packs/Day Years [...] is lower risk 7 01/05/2023 Data from: https://www.neighborhoodatlas.[facility].edu/. Last address used for calculation [...] on filedocumented in this encounter Care Teams Mammal Control Agent Relationship Specialty Start Date End Date Fadi Castaneda DO PCP - General Internal Medicine 03/24/15 Elroy Padilla MD Primary Staff Physician Cardiology 11/07/18 Fadi Castaneda DO [address] [place] [address] Internal Medicine 10/03/20 Brody Huffman MD [address] [place] [address] Primary Staff Physician Cardiology 02/26/2106/10 documented as of this encounter
--- OUTSIDE RECORDS SUMMARY | 2025-03-14 09:55 | XMS_ITS | Encounter Summary ---
Author Organization [facility] Address [address] [place] [address] Care Team Providers Care Smoke Room Operator Name Role Phone Fadi Castaneda DO Primary Care Provider [phone] Elroy Padilla MD Unavailable Fadi Castaneda DO Unavailable [phone] Brody Huffman MD Unavailable Unavailable Source Comments In the event this information is protected by the Federal Confidentiality of Alcohol and Drug AbusePatient Records regulations: The Federal rules restrict any use of the information to criminally investigate or prosecute any alcohol or drug abuse patient.[facility] Encounter Details Date Type Department Care Team (Late st Contact Info) Description 07/21/2020 Patient Msg [facility] [address] [id number] Josefina Mcclelland MD [address] [place] [id number] RE: Appointment Cancellation Request Social History Tobacco Use Types Packs/Day Years Used Date Smoking Tobacco: Former Cigarettes 1 17 - 2008 Smokeless Tobacco: Never Alcohol Use [...] of Binge Drinking Not on file 09/2019 Sex and Gender Information Value Date Recorded Sex Assigned at Not on file Legal Sex Male 9:30 AM EDT Gender Identity Not on file Sexual Orientation Not on file COVID-19 Exposure Response Date Recorded In the last month, have you been in contact with someone who was confirmed or suspected to have Coronavirus / COVID-19? No / Unsure 07/24/2020 3:10 PM EST documented as of this encounter Plan of Treatment Not on file documented as of this encounter Visit Diagnoses Not on filedocumented in this encounter Care Teams Smoke Room Operator Relationship Specialty Start Date End Date Fadi Castaneda DO PCP - General Internal Medicine 03/24/15 Elroy Padilla MD Primary Staff Physician Cardiology 11/07/18 Fadi Castaneda DO [address] [place] [address] Internal Medicine 10/03/20 Brody Huffman MD [address] [place] [address] Primary Staff Physician Cardiology 02/26/2106/10 documented as of this encounter
== END 2025-03-14 09:54 | disposition home or self-care (01) ==
LOC: RAD 09:53
PROVIDERS: PCP Internal Medicine; Visit Provider Physician Assistant
DX: M25.511 Pain in right shoulder (principal); M25.512 Pain in left shoulder; M19.012 Primary osteoarthritis, left shoulder; M19.011 Primary osteoarthritis, right shoulder
CPT/HCPCS: 73030